=== PATIENT | female | born 1990 | race Two or more races ===

== ENCOUNTER 2024-04-26 11:46 | Emergency (ER) | payer OTHER ==
[~2024-04-26] VITALS: Ht 160 cm; Wt 55.3 kg
[2024-04-26 12:10] VITALS: BP 98/59; O2SAT 96
[2024-04-26] MEDS ORDERED: OSEL75CA PO (15:41)
[2024-04-26] MEDS ORDERED: GILTUSS COUGH-118 M1 PO (15:41)
== END 2024-04-26 15:49 | disposition home or self-care (01) ==
LOC: ER 11:48
DX: J10.1 Influenza due to other identified influenza virus with other respiratory manifestations (principal); Z20.822 Contact with and (suspected) exposure to COVID-19